=== PATIENT | male | born 1955 | race Caucasian/White ===

== ENCOUNTER 2022-09-10 09:54 | Emergency (ER) | payer OTHER ==
[~2022-09-10] VITALS: Ht 182.9 cm; Wt 102.1 kg
[2022-09-10] MEDS ORDERED: TAMS0.4C PO (10:20)
[2022-09-10] MEDS ORDERED: TUSSIN DM SYRU118 ML PO (14:10)
[2022-09-10] MEDS ORDERED: MEDROLPACK PO (14:10)
[2022-09-10] MEDS ORDERED: ZITHROMAX500 MG PO (14:10)
== END 2022-09-10 14:36 | disposition home or self-care (01) ==
LOC: ER 09:54
DX: J06.9 Acute upper respiratory infection, unspecified (principal); Z20.822 Contact with and (suspected) exposure to COVID-19